=== PATIENT | female | born 1945 | race Caucasian/White ===

== ENCOUNTER → 2018-05-12 14:03 | Outpatient (CLI) | payer MEDICARE, SELFPAY ==
--- NOTE | 2018-05-12 14:15 | RAD_ITS ---
STUDY: X-RAY - LEFT HAND REASON FOR EXAM: Female, 72 years old. Pain TECHNIQUE: 3 view(s) of the hand. COMPARISON: None. FINDINGS: There is subluxation at the MCP joints with mild juxta articular osteopenia. There are minimal degenerative changes involving the interphalangeal joint of the thumb. No fractures. The soft tissues are normal RAD/Hand Min 3 Views IMPRESSION: The findings in the hand are consistent with rheumatoid arthritis. No acute fracture Electronically Signed: Glynn Oconnor, at 6:21 EDT Tel , Service support ,
--- NOTE | 2018-05-12 14:15 | RAD_ITS ---
STUDY: X-RAY - RIGHT HAND REASON FOR EXAM: Female, 72 years old. Rheumatoid arthritis. Baseline study TECHNIQUE: view(s) of the hand. COMPARISON: None. FINDINGS: There are perpetual flexion deformities of the MCP joints with mild juxta-articular osteopenia and moderate degenerative changes involving the interphalangeal joint of the thumb and some of the fingers. There are no fractures.. RAD/Hand Min 3 Views IMPRESSION: The findings in the right adnexal cystic this rheumatoid arthritis. No fractures Electronically Signed: Glynn Oconnor, at 6:27 EDT Tel , Service support ,
--- NOTE | 2018-05-12 14:15 | RAD_ITS ---
STUDY: X-RAY - PELVIS REASON FOR EXAM: Female, 72 years old. Pain TECHNIQUE: One view of the pelvis was obtained. COMPARISON: None. FINDINGS: There is a non-specific bowel gas pattern. Normal visualized soft tissue structures. There is narrowing with cortical sclerosis and osteophyte formation of the sacroiliac joint consistent with degenerative osteoarthritic changes. Normal visualized bilateral superior and inferior pubic rami. Normal pubic symphysis. Normal ischial tuberosities. Normal visualized right femoral head. Normal right acetabulum. There is mild articular joint space narrowing of the right hip. Normal visualized left femoral head. Normal left acetabulum. There is mild articular joint space narrowing of the left hip. RAD/Pelvis 1 or 2 Views IMPRESSION: Mild arthrosis, no demonstrated fracture or aggressive osseous lesion Electronically Signed: Donald Amaya MD at 14:51 EDT , Service support ,
[2018-05-12 15:37] LABS: Absolute Lymphocyte Count 1.32 X10^3/ul (0.83-4.51); Absolute Neutrophil Count 3.7 X10^3/uL (2.0-7.7); Basophil# 0.06 X10^3/uL; Eosinophil# 0.26 X10^3/uL; Eosinophils% 4.4 % (0-5); Hematocrit 48.2 % (37-47); Hemoglobin 15.5 g/dl (12.0-15.0); Lymphocyte # 1.32 X10^3/ul (4.0); Lymphocyte % 22.6 % (19-41); Mean Corp Hgb Conc 32.2 g/gl (32-36); Mean Corpuscular Hgb 26.6 pg (27.0-32.0); Mean Corpuscular Volume 82.8 fL (81-99); Mean Platelet Vol. 10.4 fl (6.2-12.0); Monocyte# 0.48 X10^3/uL; Monocyte% 8.2 % (0-10); Neutrophil # 3.71 X10^3/uL (2.7-7.7); Neutrophil % 63.5 % (47-70); Platelet Count 258 K/mm3 (150-450); RBC Distribution Width SD 45.1 fl (35.1-43.9); Red Blood Count 5.82 M/mm3 (4.2-5.4); White Blood Count 5.9 K/mm3 (4.4-11.0)
[2018-05-12 15:40] LABS: POSITIVE COUNT NO; POSITIVE DIFFERENTIAL NO; POSITIVE MORPHOLOGY NO
[2018-05-12 15:50] LABS: Erythrocyte Sedimentation Rate 39 mm/hr (0-30)
[2018-05-12 16:01] LABS: ALB/GLOB Ratio 0.8 RATIO (0.9-2.4); AST(SGOT) 34 U/L (15-37); Alanine Aminotransfer ALT/SGPT 37 U/L (13-56); Albumin, Serum 3.7 g/dL (3.2-5.0); Alkaline Phosphatase 102 U/L (45-117); Anion Gap 7 (5-15); BUN 14 mg/dL (7-18); BUN/Creat Ratio 13.7 RATIO (10-20); Calcium,Total 8.9 mg/dL (8.5-10.1); Chloride 106 mmol/L (98-107); Creatinine, Serum 1.02 mg/dL (0.55-1.02); EST Glomerular Filtration Rate 57 mL/min (>60); Est Glom Filt Rate - Afr Amer 69 mL/min (>60); Globulin 4.6 g/dL (2.2-4.2); Glucose 62 mg/dL (74-106); Potassium 3.7 mmol/L (3.5-5.1); Protein, Total 8.3 g/dL (6.4-8.2); Rheumatoid Factor < 10.0 IU/mL (<15); Sodium Level 140 mmol/L (136-145)
[2018-05-14 14:09] LABS: SJOGREN'S Anti-SS-A test < 0.2 AI (0.0-0.9); SJOGREN'S Anti-SS-B test < 0.2 AI (0.0-0.9)
[2018-05-14 14:32] LABS: ANTINUCLEAR ANTIBODIES DIRECT Negative (Negative)
[2018-05-22 07:54] LABS: CCP IgG Antibodies 4 units (0-19); HEPATITIS B SURFACE AG Negative (Negative); HLA B27 Negative (.); Hep B Surface Antibodies Non Reactive (.); Hep C Antibodies <0.1 s/co ratio (0.0-0.9)
== END ==
PROVIDERS: Visit Provider Internal Medicine Rheumatology
DX: M06.4 Inflammatory polyarthropathy (principal); I10 Essential (primary) hypertension; E78.5 Hyperlipidemia, unspecified; F41.9 Anxiety disorder, unspecified; F32.89 Other specified depressive episodes; E11.49 Type 2 diabetes mellitus with other diabetic neurological complication; M06.842 Other specified rheumatoid arthritis, left hand; M06.841 Other specified rheumatoid arthritis, right hand
CPT/HCPCS: 36415; 72170; 73130; 80053; 81374; 85025; 85652; 86038; 86140; 86200; 86235; 86431; 86706; 86803; 87340

== ENCOUNTER → 2018-05-14 12:25 | Outpatient (CLI) | payer MEDICARE, SELFPAY ==
[2018-05-14 12:28] LABS: Pathologist Comment May follow
[2018-05-14 13:20] LABS: RBC /Synovial Fluid 0.037 10^6/uL (0)
[2018-05-14 13:23] LABS: AUTO B FLUID DILUENT BKGD CT WBC <0.1 RBC <0.01 (W<.1,R<.01)
[2018-05-14 13:25] LABS: Appearance /Synovial Fluid Cloudy (CLEAR); Color / Synovial Fluid Red (Pale Yellow); Source / Synovial Fluid RIGHT KNEE; Source- Body Fluid SYNOVIAL
[2018-05-14 13:30] LABS: Synovial Fld Polynuclear WBC # 3.333 10^3/ul; Synovial Fld Polynuclear WBC % 53.7 %
[2018-05-14 13:31] LABS: Synovial Fld Mononuclear WBC # 2.872 10^3/ul; Synovial Fld Mononuclear WBC % 46.3 %
[2018-05-14 13:52] LABS: Viscosity / Synovial Fluid Sl. Viscous (HIGH)
[2018-05-14 14:00] LABS: Lymph 11 %; Monocyte /Synovial Fluid 4 %; Neutrophil 85 % (0-25)
[2018-05-17 10:24] LABS: Pathologist Review Reviewed
== END ==
PROVIDERS: Visit Provider Internal Medicine Rheumatology
DX: M06.4 Inflammatory polyarthropathy (principal); M25.561 Pain in right knee
CPT/HCPCS: 87070; 87075; 87205; 89050; 89051; 89060

== ENCOUNTER → 2018-08-06 17:32 | Outpatient (CLI) | payer MEDICARE, SELFPAY ==
[2018-08-06 17:37] LABS: Pathologist Comment May follow
[2018-08-06 18:59] LABS: RBC /Synovial Fluid 0.005 10^6/uL (0); Synovial Fld Mononuclear WBC % 50.3 %; Synovial Fld Polynuclear WBC # 3.256 10^3/ul; Synovial Fld Polynuclear WBC % 49.7 %
[2018-08-06 19:55] LABS: AUTO B FLUID DILUENT BKGD CT WBC <0.1 RBC <0.01 (W<.1,R<.01); CRYSTALS, BODY FLUID See PATH REV; Source- Body Fluid SYNOVIAL
[2018-08-06 19:56] LABS: Appearance /Synovial Fluid Cloudy (CLEAR); Color / Synovial Fluid Yellow (Pale Yellow); Lymph 19 %; Monocyte /Synovial Fluid 22 %; Neutrophil 59 % (0-25)
[2018-08-06 20:06] LABS: Body Fluid QC Type(s) BF2Q,BF3Q
[2018-08-09 14:41] LABS: Pathologist Review Reviewed
== END ==
PROVIDERS: Visit Provider Internal Medicine Rheumatology
DX: M06.4 Inflammatory polyarthropathy (principal); M35.00 Sjogren syndrome, unspecified; I10 Essential (primary) hypertension; E78.5 Hyperlipidemia, unspecified; F41.9 Anxiety disorder, unspecified; F32.89 Other specified depressive episodes; E11.49 Type 2 diabetes mellitus with other diabetic neurological complication; Z79.899 Other long term (current) drug therapy
CPT/HCPCS: 87070; 87075; 87205; 89050; 89051; 89060

== ENCOUNTER → 2019-01-17 11:46 | Outpatient (CLI) | payer MEDICARE, SELFPAY ==
[2019-01-17 14:09] LABS: ALB/GLOB Ratio 0.9 RATIO (0.9-2.4); AST(SGOT) 52 U/L (15-37); Absolute Lymphocyte Count 1.39 X10^3/ul (0.83-4.51); Absolute Neutrophil Count 3.9 X10^3/uL (2.0-7.7); Alanine Aminotransfer ALT/SGPT 56 U/L (13-56); Albumin, Serum 3.7 g/dL (3.2-5.0); Alkaline Phosphatase 100 U/L (45-117); Anion Gap 7 (5-15); BUN 15 mg/dL (7-18); BUN/Creat Ratio 13.3 RATIO (10-20); Basophil# 0.05 X10^3/uL; Basophil% 0.8 % (0-1); Calcium,Total 8.5 mg/dL (8.5-10.1); Chloride 110 mmol/L (98-107); Creatinine, Serum 1.13 mg/dL (0.55-1.02); EST Glomerular Filtration Rate 50 mL/min (>60); Eosinophils% 4.9 % (0-5); Est Glom Filt Rate - Afr Amer 61 mL/min (>60); Globulin 3.9 g/dL (2.2-4.2); Glucose 89 mg/dL (74-106); Hematocrit 48.5 % (37-47); Hemoglobin 15.2 g/dl (12.0-15.0); Lymphocyte # 1.39 X10^3/ul (4.0); Lymphocyte % 22.7 % (19-41); Mean Corp Hgb Conc 31.3 g/gl (32-36); Mean Corpuscular Volume 89.5 fL (81-99); Mean Platelet Vol. 10.2 fl (6.2-12.0); Monocyte# 0.46 X10^3/uL; Monocyte% 7.5 % (0-10); Neutrophil # 3.91 X10^3/uL (2.7-7.7); Neutrophil % 63.9 % (47-70); POSITIVE COUNT NO; POSITIVE DIFFERENTIAL NO; POSITIVE MORPHOLOGY NO; Platelet Count 233 K/mm3 (150-450); Potassium 3.8 mmol/L (3.5-5.1); Protein, Total 7.6 g/dL (6.4-8.2); RBC Distribution Width SD 48.2 fl (35.1-43.9); Red Blood Count 5.42 M/mm3 (4.2-5.4); Sodium Level 145 mmol/L (136-145); White Blood Count 6.1 K/mm3 (4.4-11.0)
== END ==
PROVIDERS: PCP Internal Medicine; Referring Provider Internal Medicine Rheumatology; Visit Provider Internal Medicine Rheumatology
DX: M06.4 Inflammatory polyarthropathy (principal); M35.00 Sjogren syndrome, unspecified; I10 Essential (primary) hypertension; E78.5 Hyperlipidemia, unspecified; F41.9 Anxiety disorder, unspecified; F32.89 Other specified depressive episodes; E11.49 Type 2 diabetes mellitus with other diabetic neurological complication; Z79.899 Other long term (current) drug therapy
CPT/HCPCS: 36415; 80053; 85025